=== PATIENT | male | born 1990 | race African-American/Black ===

== ENCOUNTER 2021-08-08 11:13 | Outpatient (CLI) | payer OTHER, SELFPAY | END 2021-08-08 11:14 | disposition home or self-care (01) | LOC: ANHAUDASC 11:14 | PROVIDERS: Visit Provider Otolaryngology | DX: H65.21 Chronic serous otitis media, right ear (principal); H90.6 Mixed conductive and sensorineural hearing loss, bilateral | CPT/HCPCS: 92557; 92567 ==